=== PATIENT | male | born 1980 | race Caucasian/White ===

== ENCOUNTER 2016-11-08 14:51 | Emergency (ER) | payer BC ==
[~2016-11-08] VITALS: Ht 175.3 cm; Wt 74.4 kg
[~2016-11-08 14:51] MED LIST: FLEXERIL10 MG PO; IBUPROFEN800 MG PO; LORTAB 5/500 TA1 TA1 PO; METHADOSE PO; NO MEDICATIONS
[2016-11-08] MEDS ORDERED: ZOLOFT (15:16)
[2016-11-08] MEDS ORDERED: GABAPENTIN400 M2 (15:17)
[2016-11-08] MEDS ORDERED: ALLERGY MEDICAT25 M1 (15:17)
== END 2016-11-08 16:35 | disposition home or self-care (01) ==
LOC: SED 14:51
DX: J32.9 Chronic sinusitis, unspecified (principal)
CPT/HCPCS: 99283